=== PATIENT | male | born 1995 | race Caucasian/White ===

== ENCOUNTER 2019-09-08 20:18 | Emergency (ER) | payer BC ==
--- NOTE | 2019-09-08 22:27 | RAD ---
EXAM: Chest PA and lateral: HISTORY: Cough COMPARISON: none FINDINGS: Lung hinojosa are clear. Vascular markings are normal. Heart and mediastinum appear unremarkable. Osseous structures are unremarkable. IMPRESSION: Unremarkable chest
== END 2019-09-08 23:19 | disposition home or self-care (01) ==
LOC: ERS 20:18
DX: B34.9 Viral infection, unspecified (principal); R11.2 Nausea with vomiting, unspecified
CPT/HCPCS: 71046; 99284